=== PATIENT | female | born 1955 | race Caucasian/White ===

== ENCOUNTER → 2018-12-28 | Outpatient (CLI) | payer OTHER ==
--- NOTE | 2018-12-28 15:39 | KCIC ---
CHEST PA LATERAL History: Left-sided rib pain Comparison: 03/27/2016 CT chest without contrast. Findings: Frontal and lateral views of chest were obtained. The cardiomediastinal silhouette is normal. Pulmonary vasculature is normal. The lungs are clear. Left lower lung field calcified granuloma is present. No pleural effusion or pneumothorax is seen. There is no acute bone abnormality. IMPRESSION: No acute cardiopulmonary process. Electronically signed by: Ty Mcclain MD (12/28/2018 3:36 PM) [facility]
== END | disposition home or self-care (01) ==
LOC: KCIC 13:22
PROVIDERS: ATTEND Internal Medicine
DX: J84.10 Pulmonary fibrosis, unspecified (principal)
CPT/HCPCS: 71046

== ENCOUNTER → 2019-04-14 | Outpatient (CLI) | payer OTHER ==
--- NOTE | 2019-04-15 08:59 | KCIC ---
Bilateral digital screening mammograms: Reason for examination: Routine screening. Comparison is made to previous study dated 03/27/2016. Interpretation was made with the benefit of CAD. The skin and nipples show no abnormalities. No abnormal axillary lymph nodes are seen. The breast parenchyma shows scattered fibroglandular density. (Breast density: Category B.) There are no dominant masses, suspicious calcifications or architectural distortions. Impression: No evidence of malignancy. Recommend routine screening. BI-RADS Category 1: Negative. "Our facility is accredited by the [employer] Mammography [employer]." This patient's information has been entered into a reminder system for the patient to be notified with the results of her examination and a target date for the next mammogram. Electronically signed by: Deana Trevizo MD (04/15/2019 8:56 AM) [id number]
== END | disposition home or self-care (01) ==
LOC: KCIC MAMMO 14:51
PROVIDERS: ATTEND Family Medicine
DX: Z12.31 Encounter for screening mammogram for malignant neoplasm of breast (principal)
CPT/HCPCS: 77067

== ENCOUNTER → 2020-06-28 | Outpatient (CLI) | payer BC ==
--- NOTE | 2020-06-28 13:43 | KCIC ---
EXAM: Right hip, 2 views. HISTORY: Pain. COMPARISON: None. FINDINGS: 2 views the right hip are obtained. There is no fracture, dislocation or subluxation. There is mild marginal acetabular and femoral head spurring. There is degenerative change of the lumbosacr al junction. IMPRESSION: Mild right hip osteoarthritis. Electronically signed by: Marguerite Bhakta MD (06/28/2020 1:40 PM) [id number]
--- NOTE | 2020-06-28 14:33 | KCIC ---
EXAM: CT low dose lung cancer screening without intravenous contrast. HISTORY: Tobacco use. TECHNIQUE: Computed tomographic images of the chest were obtained without contrast. Multiplanar refor matting was performed. *One or more of the following individualized dose reduction techniques were utilized for this examina tion: 1. Automated exposure control. 2. Adjustment of the mA and/or kV according to patient size. 3. Use of iterative reconstruction technique. COMPARISON: None. FINDINGS: The heart is normal in size. The aorta is normal in caliber. There is calcified atheroscler otic plaque involving the coronary arteries. There are scattered calcified granulomas. There is no ly mphadenopathy. There is no pneumothorax or pleural effusion. There is lingular and medial right middl e lobe pleural-parenchymal scarring. There is no infiltrate. There is no suspicious pulmonary nodule. There is no acute finding involving the osseous structures or upper abdomen. There is a tiny hiatal hernia. IMPRESSION: 1. No acute thoracic finding or suspicious pulmonary nodule. Lung RADS category 1. 2. Healed granulomatous disease and right middle lobe and lingular pleural scarring. Electronically signed by: Marguerite Bhakta MD (06/28/2020 2:30 PM) [id number]
--- NOTE | 2020-06-28 16:23 | KCIC ---
Bilateral digital screening mammograms Reason for examination: Routine screening. Family history of breast cancer of the patient's sister. Comparison is made to previous study dated April 14, 2019 and priors. . Routine CC and MLO digital views obtained. Interpretation was made with the benefit of CAD. The skin and nipples show no abnormalities. No abnormal lymph nodes are seen. The breast parenchyma i s scattered fibroglandular elements. (Breast density: Category B.) There are no suspicious masses, garvey spicious calcifications or architectural distortions. A few benign calcifications are present Impression: Negative mammogram. Recommend routine screening. BI-RADS Category 1: Negative. "Our facility is accredited by the [employer] Mammography Program." This patient's information has been entered into a reminder system for the patient to be notified wit h the results of her examination and a target date for the next mammogram. Electronically signed by: Nathan Blanco MD (06/28/2020 4:20 PM) [id number]
== END ==
LOC: KCIC CT 12:33
PROVIDERS: ATTEND Family Medicine
DX: Z12.31 Encounter for screening mammogram for malignant neoplasm of breast (principal); K44.9 Diaphragmatic hernia without obstruction or gangrene; M16.11 Unilateral primary osteoarthritis, right hip; I25.10 Atherosclerotic heart disease of native coronary artery without angina pectoris; F17.200 Nicotine dependence, unspecified, uncomplicated
CPT/HCPCS: 71271; 73502; 77067